=== PATIENT | female | born 1985 | race Two or more races ===

== ENCOUNTER 2016-08-02 10:52 | Emergency (ER) | payer MEDICAID ==
[~2016-08-02] VITALS: Ht 165.1 cm; Wt 107.7 kg
[2016-08-02 13:05] VITALS: BP 116/62
[2016-08-02] MEDS ORDERED: KETOROLAC TROMETH 60MG/2ML VIAL IM ONE (13:45)
== END 2016-08-02 14:25 | disposition home or self-care (01) ==
LOC: ER 11:02
DX: G43.909 Migraine, unspecified, not intractable, without status migrainosus (principal)
CPT/HCPCS: 96372; 99283; J1885